=== PATIENT | female | born 1955 | race Caucasian/White ===

== ENCOUNTER → 2016-10-26 | Outpatient (CLI) | payer OTHER | LOC: COL.RAD 09:41 | DX: R31.9 Hematuria, unspecified (principal); R93.8 Abnormal findings on diagnostic imaging of other specified body structures; Z87.442 Personal history of urinary calculi ==

== ENCOUNTER → 2017-06-03 | Outpatient (CLI) | payer OTHER | LOC: MC.RAD 07:00 | DX: Z12.31 Encounter for screening mammogram for malignant neoplasm of breast (principal) ==

== ENCOUNTER → 2018-04-19 | Outpatient (CLI) | payer BC | LOC: MC.RAD 07:54 | DX: Z12.31 Encounter for screening mammogram for malignant neoplasm of breast (principal); N64.89 Other specified disorders of breast ==

== ENCOUNTER → 2018-04-21 | Outpatient (CLI) | payer BC | LOC: MC.RAD 08:51 | DX: R92.8 Other abnormal and inconclusive findings on diagnostic imaging of breast (principal) ==

== ENCOUNTER → 2019-03-13 | Outpatient (CLI) | payer BC | LOC: COL.RAD 07:01 | DX: R10.2 Pelvic and perineal pain (principal); Z87.442 Personal history of urinary calculi ==

== ENCOUNTER → 2019-06-04 | Outpatient (CLI) | payer BC | LOC: MC.RAD 09:57 | DX: Z12.31 Encounter for screening mammogram for malignant neoplasm of breast (principal) ==

== ENCOUNTER → 2020-05-06 | Outpatient (CLI) | payer BC | LOC: MC.RAD 07:19 | DX: Z12.31 Encounter for screening mammogram for malignant neoplasm of breast (principal) ==

== ENCOUNTER → 2021-05-07 | Outpatient (CLI) | payer MEDICARE, BC | LOC: MC.RAD 08:25 | DX: Z12.31 Encounter for screening mammogram for malignant neoplasm of breast (principal) ==

== ENCOUNTER → 2022-05-11 | Outpatient (CLI) | payer MEDICARE, BC | LOC: MC.RAD 16:01 | DX: Z12.31 Encounter for screening mammogram for malignant neoplasm of breast (principal) ==

== ENCOUNTER → 2023-06-21 | Outpatient (CLI) | payer MEDICARE, BC | LOC: MC.RAD 09:23 | DX: Z12.31 Encounter for screening mammogram for malignant neoplasm of breast (principal) ==

== ENCOUNTER → 2024-07-04 | Outpatient (CLI) | payer MEDICARE, BC | LOC: MC.RAD 06:55 | DX: Z12.31 Encounter for screening mammogram for malignant neoplasm of breast (principal) ==